=== PATIENT | female | born 1970 | race Caucasian/White ===

== ENCOUNTER 2016-10-25 09:53 | Emergency (ER) | payer MEDICARE, OTHER ==
[~2016-10-25] VITALS: Ht 165.1 cm; Wt 108.9 kg
[~2016-10-25 09:53] MED LIST: CEPHALEXIN500 MG PO; LANTUS100 UNITS/ SUB-Q; MECLIZINE HCL25 MG PO; NOVOLOG100 UNITS/ IV; PROMETHAZINE HC25 M1 PO
[2016-10-25] MEDS ORDERED: OMEPRAZOLE20 M1 PO (10:11)
--- NOTE | 2016-10-25 19:52 | EKG ---
[facility] [address] [facility] [place], [place] [address] Signed Normal sinus rhythm Normal ECG When compared with ECG of 10-APR-2016 19:01, No significant change was found Confirmed by EVAN LOPES MD ([id number]) on 10/25/2016 7:52:34 PM Electronically Signed By: EVAN LOPES MD 10/25/161951 PATIENT NAME: GAYATRI GRAHAMTIANA IVÁN Electrocardiogram DATE OF : 70 PHYSICIAN: EVAN LOPES MD REPORT #: [id number] REPORT IS CONFIDENTIAL AND NOT TO BE RELEASED WITHOUT AUTHORIZATION
== END 2016-10-25 14:29 | disposition left against medical advice (07) ==
LOC: ED 09:53
PROC: 0T9B70Z Drainage of Bladder with Drainage Device, Via Natural or Artificial Opening (ICD-10-PCS; principal; 2016-10-25)
DX: E11.65 Type 2 diabetes mellitus with hyperglycemia (principal); E11.618 Type 2 diabetes mellitus with other diabetic arthropathy; E11.621 Type 2 diabetes mellitus with foot ulcer; E11.40 Type 2 diabetes mellitus with diabetic neuropathy, unspecified; L97.529 Non-pressure chronic ulcer of other part of left foot with unspecified severity; L57.0 Actinic keratosis; R03.0 Elevated blood-pressure reading, without diagnosis of hypertension; E66.9 Obesity, unspecified; F17.210 Nicotine dependence, cigarettes, uncomplicated; Z79.4 Long term (current) use of insulin; Z89.511 Acquired absence of right leg below knee; Z89.422 Acquired absence of other left toe(s); Z89.412 Acquired absence of left great toe; Z79.899 Other long term (current) drug therapy; Z88.0 Allergy status to penicillin; Z88.1 Allergy status to other antibiotic agents; Z91.19 Patient's noncompliance with other medical treatment and regimen; Z99.3 Dependence on wheelchair
CPT/HCPCS: 36600; 51701; 73630; 80053; 81001; 82010; 82803; 83036; 85025; 85610; 93005; 93010; 96361; 96365; 96368; 96376; 99283; J0692; J7030

== ENCOUNTER 2016-11-17 16:37 | Emergency (ER) | payer MEDICARE, OTHER ==
[~2016-11-17] VITALS: Ht 165.1 cm; Wt 108.9 kg
[~2016-11-17 16:37] MED LIST changes: +OMEPRAZOLE20 M1 PO
[2016-11-17] MEDS ORDERED: CEPHALEXIN500 MG PO (20:24)
[2016-11-17] MEDS ORDERED: NORCO 5-325 TA1 EACH PO (20:24)
[2016-11-17] MEDS ORDERED: BACTRIM DS TAB1 EACH PO (20:24)
== END 2016-11-17 20:35 | disposition home or self-care (01) ==
LOC: ED 16:37
PROC: 0H96XZZ Drainage of Back Skin, External Approach (ICD-10-PCS; principal; 2016-11-17)
DX: L02.212 Cutaneous abscess of back [any part, except buttock and flank] (principal); E11.9 Type 2 diabetes mellitus without complications; Z89.422 Acquired absence of other left toe(s); F17.200 Nicotine dependence, unspecified, uncomplicated; Z88.0 Allergy status to penicillin; Z89.511 Acquired absence of right leg below knee; Z88.8 Allergy status to other drugs, medicaments and biological substances; Z79.4 Long term (current) use of insulin; Z79.899 Other long term (current) drug therapy
CPT/HCPCS: 10060; 87070; 87077; 87186; 87205; 99283

== ENCOUNTER 2016-11-20 11:50 | Emergency (ER) | payer MEDICARE, OTHER ==
[~2016-11-20] VITALS: Ht 165.1 cm; Wt 108.9 kg
[~2016-11-20 11:50] MED LIST changes: +BACTRIM DS TAB1 EACH PO; +NORCO 5-325 TA1 EACH PO
== END 2016-11-20 12:41 | disposition home or self-care (01) ==
LOC: ED 11:50
DX: Z48.817 Encounter for surgical aftercare following surgery on the skin and subcutaneous tissue (principal); E11.9 Type 2 diabetes mellitus without complications; F17.200 Nicotine dependence, unspecified, uncomplicated; Z89.422 Acquired absence of other left toe(s); Z89.511 Acquired absence of right leg below knee
CPT/HCPCS: 99282

== ENCOUNTER 2016-11-22 06:42 | Inpatient (IN) | payer MEDICARE, OTHER ==
[~2016-11-22] VITALS: Ht 165.1 cm; Wt 114.4 kg
--- NOTE | 2016-11-22 10:41 | NUR ---
PT ARRIVED TO FLOOR FROM ER VIA STRETCHER. TRANSFERED FROM STRETCHER TO BED. PT TOLERATED WELL. ORIENTED TO ROOM AND CALL LIGHT. BLOOD SUGAR CHECK. CBG 315 UPON ARRIVAL TO ROOM.
--- NOTE | 2016-11-22 10:57 | NUR ---
IN ROOM WITH PTBrenda
--- NOTE | 2016-11-22 13:05 | NUR ---
LAST BLOOD SURGAR CHECH 251. INSULIN DRIP REMAINS AT 4.2. PT KEEPS COMPLAINING OF BEING "COLD". CHECKED TEMP 98.8.
--- NOTE | 2016-11-22 14:24 | NUR ---
pt left for surgery via bed. report given to tracy izquierdo.
--- NOTE | 2016-11-22 15:53 | NUR ---
pt arrived back to floor from or via bed. alert and oriented. no complaints of pain. numbness to lower extremities. pt blood sugar checked 144.
--- NOTE | 2016-11-22 16:15 | NUR ---
PLACED DRESSING TO LEFT FOOT. NON-ADHERENT DRESSING PLACED AFTER BEING CLEANED. PT TOLERATED WELL.
--- NOTE | 2016-11-22 17:15 | NUR ---
SPOKE WITH MD REGARDING PTS CBG'S AND INSULIN DRIP. ORDER TO STOP DRIP AT THIS TIME.INSULIN DRIP STOPPED. WILL TRANSISTION TO SUB Q INSULIN.
--- NOTE | 2016-11-22 17:46 | NUR ---
PT COMPLAINING OF PAIN. ORDER GIVEN FROM TO GIVE PERCOCET 7.5/325.
--- NOTE | 2016-11-22 17:55 | NUR ---
PT COMPLAINING OF PAIN 10/29. GAVE 2 TABS PERCOCET 7.5/325 PO.
--- NOTE | 2016-11-22 18:30 | NUR ---
PT STATED, "THE PAIN IS STARTING TO GET BETTER." REQUESTING A SANDWHICH FOR DINNER.
--- NOTE | 2016-11-22 20:45 | NUR ---
ASSESSMENT DONE, PT DENIES NEEDS, WILL TAKE PAINMEDS WHEN READY.
--- NOTE | 2016-11-22 22:16 | NUR ---
PT GIVEN 2 PERCOCET FOR 6/10 LLL PAIN
--- NOTE | 2016-11-23 01:04 | NUR ---
PT CONTINUES TO SLEEP WELL, RR 26, HR 80.
--- NOTE | 2016-11-23 02:30 | NUR ---
PT FOUND WITH IV PULLED OUT, DRESSING APPLIED AND IVF SWITCHED TO SECOND IV SITE. PT C/O PAIN, 2 PERCOCETS GIVEN.
--- NOTE | 2016-11-23 04:04 | NUR ---
PT AWAKENS EASILY, DENIES PAIN, BACK TO SLEEP EASILY.
--- NOTE | 2016-11-23 04:07 | NUR ---
BLOOD SUGAR CHECKED, 196.
--- NOTE | 2016-11-23 08:28 | NUR ---
PT TEARFULL AT THIS TIME OFF AND ON. PT STATES NAUSEA HAS IMPROVED "SOME". PT WILL TO ATTEMPT TO EAT BREAKFAST. PT ALERT AND ORIENTED X4. PT C/O PRURITUS ON HER BACK, RN RUBBED BACK WITH WARM MOIST TOWEL, PT STATED "THAT HELPS".
--- NOTE | 2016-11-23 08:47 | NUR ---
PT ATE BREAKFAST THEN PROMPTLY VOMITED IT UP, APPROXIMATLY 300 ML EMISIS. PT IS TEARFUL.
--- NOTE | 2016-11-23 09:03 | NUR ---
PT RESTING QUIETLY, DOZING OFF AND ON. PT COMPLIANT WITH MEDICATIONS THIS AM.
--- NOTE | 2016-11-23 10:20 | NUR ---
FAMILY IN THE ROOM TO VISIT PT.
--- NOTE | 2016-11-23 11:04 | NUR ---
CREATIVE SERVICES SPECIALIST IN ROOM CONSULTING WITH PT. PT'S MOTHER AND AUNT ARE ALSO IN THE ROOM.
--- NOTE | 2016-11-23 12:05 | NUR ---
PT UP OUT OF BED TO COMMODE FOR SITZ BATH. ADDITIONAL ALL OVER BEDBATH GIVEN. PT PARTICIPATED, BRUSHED OWN TEETH, WASHED HER FACE AND HANDS WITH HOT SOAPY WASH CLOTH. GAUZE PULLED OUT OF WOUND ON LOWER BACK PER , WOUND WNL, SMALL AMOUNT OF SANGUNIOUS DRAINAGE NOTED. WRIGHT CATH CARE DONE, NOTED PT HAS YELLOWISH-WHITE DISCHARGE IN VAGINAL AREA, VIKKI AREA RED AND SWOLLEN.
--- NOTE | 2016-11-23 12:35 | EKG ---
[facility] [address] [facility] [place], [place] [address] Signed Normal sinus rhythm Normal ECG When compared with ECG of 25-OCT-2016 10:44, No significant change was found Confirmed by EVAN LOPES MD ([id number]) on 11/23/2016 12:35:32 PM Electronically Signed By: EVAN LOPES MD 11/23/16 1235 PATIENT NAME: GAYATRI GRAHAMTIANA IVÁN Electrocardiogram DATE OF : 70 PHYSICIAN: EVAN LOPES MD REPORT #: [id number] REPORT IS CONFIDENTIAL AND NOT TO BE RELEASED WITHOUT AUTHORIZATION
--- NOTE | 2016-11-23 14:03 | NUR ---
PT RESTING IN BED. ALERT, ORIENTED AND SUPPORTED BY HER AUNT AND MOTHER FROM [place]. PT MENTIONED THAT SHE WOULD LIKE TO VISIT WITH ME WHEN SHE DOESNOT HAVE COMPANY. I MENTIONED I WOULD STOP BY TOMORROW. SHE THANKED ME-I EXTENDED A BLESSING, WILL FOLLOW NEEDED
--- NOTE | 2016-11-23 14:07 | NUR ---
PT ALERT AND ORIENTED X4, SITTING UP IN BED VISITING WITH FAMILY. PT DENIES NAUSEA, PAIN, AND SOB AT THIS TIME.
--- NOTE | 2016-11-23 15:55 | NUR ---
PT REFUSED TO WORK WITH PHYSICAL THERAPY DUE TO PAIN, REFUSED PAIN MEDS.
--- NOTE | 2016-11-23 16:01 | NUR ---
CALLED TO UPDATE ON PT. INFORMED THAT PT REFUSED PHYSICAL THERAPY DUE TO 8/10 PAIN, PT ALSO REFUSED PAIN MEDICATION "IT MAKES ME THROW UP". ORDER GIVEN FOR PO TYLENOL 650 MG Q 4 HOURS PRN PAIN.
--- NOTE | 2016-11-23 16:09 | NUR ---
PT C/O 09/28 PAIN IN LEFT BUTTOCK. PT CALM, ALERT AND ORIENTED X4 VISITING WITH FAMILY IN THE ROOM. PT DENIES SOB AND NAUSEA. VITALS WNL. PT GIVEN 650 MG TYLENOL PO FOR PAIN, PT REFUSES TO TAKE NARCOTICS DUE TO NAUSEA. DISCUSSED PLAN OF GETTING PT UP TO THE CHAIR AFTER TYLENOL HAS HAD A CHANCE TO DECREASE PAIN. PT AGREABLE TO THIS.
--- NOTE | 2016-11-23 16:27 | NUR ---
BOTH IV SITES INTACT, NO SWELLING OR REDNESS NOTED, PT DENIES PAIN WITH FLUSH. FLUIDS INFUSING EASILY, SALINE LOCK FLUSHES EASILY.
--- NOTE | 2016-11-23 17:45 | NUR ---
ABD PAD CHANGED ON LEFT BUTTOCK, MODERATE AMOUNT OF SEROSANGUNIOUS DRAINAGE NOTED. PT ABLE TO REPOSITION EASILY IN BED. PT THEN SAT UP IN BED AND ORDERED A CHEESEBURGER FOR DINNER. PT STATES "I THINK I WILL BE READY TO WORK WITH PHYSICAL THERAPY TOMORROW, I JUST COULDN'T TODAY"
--- NOTE | 2016-11-23 18:18 | NUR ---
PT SITTING UP IN BED WATCHING TV AND EATING A CHEESEBURGER. PT DENIES NAUSEA AND SOB AT THIS TIME. PT RATES LEFT BUTTOCK PAIN 5/10, AND STATES "IT'S BETTER".
--- NOTE | 2016-11-24 00:34 | NUR ---
PT SLEEPING, ROUSES, VERBALIZES COMFORTABLE AFTER TYLENOL, SKIN CARE HS, FC CARE/NEW STAT LOCK. PT RECEIVING IVF, MERRUM, VS WNL, PAD CHANGED UNDER PATIENT FOR COMFORT, ABD PERIBUTTOCKS SMALL AMT. OF SEROSANGUINOUS/JACOB/CREAM DRAINAGE. REPOSITIONING AND ADJUSTMENT OF ABD PAINFUL TO PT. A/O, PT REPOSITIONS SELF IN BED, PREFERS R SIDE ALTHOUGH SHIFTS POSITION SLIGHTLY, SKIN CHECK WNL. FOOT ULCER DRESSINGS CDI.
--- NOTE | 2016-11-24 08:30 | NUR ---
IV SITES INTACT, NO SWELLING OR REDNESS NOTED, PT DENIES PAIN AT IV SITE, FLUIDS INFUSING EASILY. PT ALERT AND ORIENTED X 4, PT AGREEABLE AND CHEERFUL THIS MORNING. PT RATES PAIN CURRENTLY AT 4/10, PT STATES THIS IS TOLLERABLE FOR HER. PT ORDERED BREAKFAST, DENIES NAUSEA AND SOB. WOUND ON LEFT BUTTOCK ABD PAD CHANGED, MODERATE AMOUNT OF SEROSANGUINOUS DRAINAGE NOTED, ANTONELLA DRAIN VISABLE. BANDAGE ON SMALL WOUND ON LOW BACK CHANGED, SCANT SEROSANGUINOUS DRAINAGE NOTED.
--- NOTE | 2016-11-24 11:04 | NUR ---
PT BRUSHING TEETH AND WASHING FACE.
--- NOTE | 2016-11-24 11:59 | NUR ---
PT C/O SLIGHT NAUSEA AFTER EATING, SCHEDULED REGALAN GIVEN. PT ALSO GIVEN 650 MG TYLENOL PO FOR 5/10 LEFT BUTTOCK PAIN.
--- NOTE | 2016-11-24 13:11 | NUR ---
PT RESTING QUIETLY, FAMILY AT THE BEDSIDE.
--- NOTE | 2016-11-24 13:50 | NUR ---
ADRIANA SOUSA, PT DAVON CABRERA.
--- NOTE | 2016-11-24 14:30 | NUR ---
PT HAD REQUESTED YESTERDAY THAT I STOP BY TODAY-SHE HAD SOMETHING SHE WANTED TO TALK TO ME ABOUT. PT WAS ASLEEP, AND I DIDNOT WANT TO DISTURB HER. TOLD LUCAS ABREU TO LET HER KNOW I WAS BY, AND THAT THERE ARE CHAPLAINS AVAILABLE 24- THAT SHE COULD HAVE COME. GOD BLESS HER
--- NOTE | 2016-11-24 14:55 | NUR ---
PT TRANSFERED FROM BED TO BEDSIDE COMMODE INDEPENDENTLY, PT ABLE TO VOID INTO COMMODE.
--- NOTE | 2016-11-24 16:12 | NUR ---
PT REQUESTED I COME TO HER ROOM AND TALK WITH HER. TOLD THE NURSE SHE WAS AFRAID THE DR WAS GOING TO SEND HER HOME TO [place] AND SHE HAS NO ONE AT HOME TO HELP HER. SHE STATED SHE THINKS SHE WOULD LIKE TO GO TO A FACILITY--PREFERABLY [facility]. INFORMED HER AND HER MOTHER THAT [facility] WAS FULL AND MOTHER STATED "WELL YOU HAVE TO HAVE SOMEONE CHECK ON THAT AGAIN." TOLD HER I HAD TALKED WITH THEM TODAY AND YES IT IS STILL FULL. OFFERED THE NAMES OF THE SNFS IN SURROUNDING AREAS AND REHAB, [facility] AND [facility]. AGAIN STATES SHE WANTS TO GO TO [facility]. TOLD HER WE WOULD CHECK WHEN THE TIME COMES.
--- NOTE | 2016-11-24 16:33 | NUR ---
IV SITE IN LEFT UPPER ARM INTACT, NO SWELLING OR REDNESS NOTED, PT DENIES PAIN WITH FLUSH. IV SITE IN RT AC DC'D DUE TO ROUTIEN IV ROTATION. PT DAVON WELL. VITALS WNL. DRESSING ON BOTH WOUNDS CHANGED. PT GIVEN 650 MG PO TYLENOL FOR 6/10 PAIN IN LEFT BUTTOCK. PT ALERT AND ORIENTED X4. PT ABLE TO INDEPENDENTLY TRANSFER FROM BED TO BEDSIDE COMMODE WITH PROSTETIC RT LEG IN PLACE.
--- NOTE | 2016-11-24 18:00 | NUR ---
PATIENT TO [facility] FLOOR CCU, REPORT HANDOFF FROM JAYLEEN ZAVALA. PATIENT NOW RESTING ON SIDE, NO CARES AT THIST TIME, ASSESMENT DONE. FAMILY IN ROOM, PATIENT WILL NOTIFY NURSE FOR CLOSER VIEW OF SURGICAL SITES WHEN NEEDING TO TRANSFER TO BSC, FAMILY IN ROOM AT THIS TIME.
--- NOTE | 2016-11-24 19:00 | NUR ---
SHIFT REPORT RECIEVED. PATIENT SITTING UP IN SIDE OF BED. FAMILY IN ROOM. DENIES NEEDS AT THIS TIME. CALL LIGHT IN REACH.
--- NOTE | 2016-11-24 21:18 | NUR ---
EVENING MEDS GIVEN PER ORDER. ASSESSMENT COMPLETED AND DOCUMENTED. PATIENT REPORTS 5/10 PAIN IN VIKKI AREA, PRN PAIN MEDS GIVEN. PATIENT IS AAOX3. LUNG CLEARN. ABD SOFT, ROUND, AND NONTENDER. PATIENT DENIES NAUSEA AT THIS TIME. ABLE TO EAT SOME SF PUDDING AND TOLERATE ORAL FLUIDS. ABD WAS APPLIED TO VIKKI/RECTAL AREA, INCISION IS INTACT WITH MINIMAL DRAINAGE. COCCYX INCISION COVERED, C/D/I. PATIENT REFUSED NYSTATIN CREAM AT THIS TIME. AGREES TO PUT IT ON NEXT TIME SHE IS UP TO THE BSC. PATIENT REFUSED SCDS AT THIS TIME. DISCUSSED IMPORTANCE OF SCDS, PATIENT VOICED UNDERSTANDING. IV SL, SITE WNL. PATIENT RESTING IN BED. PATIENT MOTHER IN ROOM, STAYING THE NIGHT. CALL LIGHT IN REACH.
--- NOTE | 2016-11-24 23:05 | NUR ---
PATIENT RESTING IN BED. EYES CLOSED. RR 16. CALL LIGHT IN REACH.
--- NOTE | 2016-11-25 00:11 | NUR ---
PATIENT REQUIRED ASSISTANCE CLEANING AFTER USING BSC. VIKKI CARE PERFORMED. NEW ABD PLACED IN VIKKI/RECTAL AREA. SMALL AMOUNT OF YELLOW DRAINAGE. PATIENT REPORTS 5/10 PAIN AND WAS MOANING AND CRYING AFTER TRANSFERING BACK TO THE BED. PRN PAIN MEDS GIVEN. PATIENT BACK TO BED. FRESH WATER PROVIDED. NO FURTHER NEEDS AT THIS TIME. CALL LIGHT IN REACH.
--- NOTE | 2016-11-25 02:41 | NUR ---
PATIENT RESTING IN BED. EYES CLOSED. RR16. CALL LIGHT IN REACH.
--- NOTE | 2016-11-25 04:21 | NUR ---
PATIENT RESTING IN BED. EYES CLOSED. RR 18. CALL LIGHT IN REACH.
--- NOTE | 2016-11-25 04:49 | NUR ---
PATIENT RESTED WELL THROGUHOUT THE NIGHT. PAIN IN VIKKI RECTAL AREA WAS CONTROLED, PRN PAIN MEDS X3. NO NAUSEA, TOLERATED PUDDING WELL. TRANSFERS TO [facility] INDEPENDENT. VIKKI CARE/WOUND CARE W/EACH TOILETING. INSICIONS APPEAR INTACT, DRAIN IN RECTAL AREA SMALL AMOUNT OF SEROSANGUENO DRAINAGE. SITZ BATH QID. ADA DIET, GLUCOSE CHECKS.
--- NOTE | 2016-11-25 05:47 | NUR ---
PATIENT RESTED WELL THROGUHOUT THE NIGHT. PAIN IN VIKKI RECTAL AREA WAS CONTROLED, PRN PAIN MEDS X3. NO NAUSEA, TOLERATED PUDDING WELL. TRANSFERS TO [facility] INDEPENDENT. VIKKI CARE/WOUND CARE W/EACH TOILETING. INSICIONS APPEAR INTACT, DRAIN IN RECTAL AREA SMALL AMOUNT OF SEROSANGUENO DRAINAGE. SITZ BATH QID. ADA DIET, GLUCOSE CHECKS.
--- NOTE | 2016-11-25 06:36 | NUR ---
PATIENT RESTING IN BED. BREAKFAST ORDER TAKEN. PATIENT DENIES NAUSEA OR PAIN AT THIS TIME. DENIEA ANY NEEDS. CALL LIGHT IN REACH.
--- NOTE | 2016-11-25 09:00 | NUR ---
PATIENT UP AT SIDE OF BED, DR. ELLIOTT ROUNDING ON PATIENT. PAIN RATED 3/10 ON PAIN SCALE. INDEPENDANT TO BSC, STAND PIVOT. DRESSING TO LEFT HEEL IN PLACE, NO DRAINAGE. ABD TO RECTAL INSCISION SITE, DRAIN APPEARS TO WORKING WELL, WITH CLOUDY DRAINAGE ON PAD. CALLS FOR ASSIST WHEN NEEDING HELP WITH CLEANING. REFUSES SHOWER AT THIS TIME. WILL RAPPROACH. ADMINISTERED MIRALAX AND MOM PER BOWEL REGIME. VS STABLE.
[2016-11-25] MEDS ORDERED: LANTUS100 UNITS/ SUB-Q (11:16)
[2016-11-25] MEDS ORDERED: NOVOLOG100 UNIT/2 SUB-Q (11:18)
[2016-11-25] MEDS ORDERED: BLOOD LANCETS1 EACH SUB-Q (11:19)
[2016-11-25] MEDS ORDERED: INSULIN SYRING1 EA11 MISC (11:19)
[2016-11-25] MEDS ORDERED: METOCLOPRAMIDE H5 MG PO (11:35)
[2016-11-25] MEDS ORDERED: VITAMIN D250000 UNIT PO (11:44)
[2016-11-25] MEDS ORDERED: CALCIUM CARBON500 MG PO (11:45)
--- NOTE | 2016-11-25 13:40 | OR ---
[facility] [address] [place], [place] [address] Signed DATE OF PROCEDURE: 11/22/16 PREOPERATIVE DIAGNOSES Morbid obesity, peripheral vasculopathy, diabetes out of control. Left perirectal abscess (complex). POSTOPERATIVE DIAGNOSES Morbid obesity, peripheral vasculopathy, diabetes out of control. Left perirectal abscess (complex). Mid lumbar abscess of soft tissue (furuncle of lumbar area). PROCEDURE PERFORMED Exam under anesthesia. Incision and drainage of complex left perirectal abscess. Placement of seton drain. Incision and drainage of lumbar abscess of skin. SURGEON: Abdirahman Elliott MD. ANESTHESIA: Saddle block with sedation (Azra Sandoval CRNA). INDICATION This 46-year-old, morbidly obese, white woman was seen in the emergency room and evaluated by Dr. Garibay earlier in the day and found to have a significant left perirectal abscess. Approximately 9-10 days ago, she had a right-sided abscess, which was drained in the emergency room by Dr. Lucas Kern and treated also by Dr. Ceja. She has very severe diabetes and has been unable to eat lately and not taking her insulin on that basis. Her blood sugar at presentation was over 500 today. Her white count was elevated, though her bicarb was normal and lactic acid was normal. She has been fluid resuscitated in the intensive care unit setting with the assistance of Dr. Morrow anticipating drainage of the left perirectal abscess. She understands the risks of bleeding, infection, formation of fistula (10% chance) as well as need for other indicated procedures and wished to proceed. FINDINGS The saddle block anesthetic was quite optimal in providing anesthesia. In addition to the perirectal abscess on the left, she did have a mid-lumbar abscess well away from the insertion site of the needle for her saddle block. This was drained separately. As regard to the left perirectal abscess, it was a complex multi trabeculated area about the size of a tennis ball. A counter incision was made and a yellow vessel loop placed for additional drainage. Examination of the anal canal shows no sign of neoplasm or Electronically Signed By: ABDIRAHMAN ELLIOTT MD 11/25/16 1340 PATIENT NAME: DELANO GRAHAM OPERATIVE REPORT DATE OF : 70 PHYSICIAN: ABDIRAHMAN ELLIOTT MD REPORT #: [id number] REPORT IS CONFIDENTIAL AND NOT TO BE RELEASED WITHOUT AUTHORIZATION [facility] [address] [place], [place] [address] Signed obvious inflammatory bowel disease. The dentate line was examined fully. There was no formed fistula at this time. PROCEDURE IN DETAIL The patient was brought to the operating room, after undergoing saddle block anesthetic and placed in prone hailey-knife position, the buttocks were taped apart. Preoperative antibiotic, meropenem was used. The patient has a below-knee amputation on 1 side and a transmetatarsal amputation on the other. On the plantar aspect of the forefoot, was an open granulated wound, approximately 6 c m in size, but no abscess proper. The perineum was prepared with a Chlorhexidine solution and draped sterilely. Manipulation of the area in question showed fluctuance. The right side was entirely normal. There was no evidence of horseshoe abscess. Using an 11 blade in the anterior plane, an incision was made not far from the anal verge (on the possibility of fistula formation should occur) and egress of purulent material was noted. There was Gram stain and cultured. A tonsil clamp was used to break up loculations in the complex perirectal abscess for more egress of purulence. Lateral to this, these loculations were similarly broken up. A counter incision was made laterally for placement of the tonsil clamp in this area for further breakdown of loculations. A yellow vessel loop was used to be tied in a loop in a seton configuration allowing for irrigation of the abscess cavity. Complete decompression was noted. It was then noted in the lumbar area that a soft tissue mass with a small punctum with egress of purulence was noted. This was more fully prepared and draped and a transverse incision made there allowing for egress of purulent material and separate Gram stain and cultures. This was essentially an infected furuncle or carbuncle. This site was packed with plain gauze. A peripad was applied to the perineum as were stretched shorts. She was ultimately returned to the supine position and taken to recovery room in good condition. Blood loss was relatively minimal. Purulence output was maximal, certainly 100 mL at minimum. MD MARY Lloyd/Muna /[id number] Electronically Signed By: ABDIRAHMAN ELLIOTT MD 11/25/16 1340 PATIENT NAME: DELANO GRAHAM OPERATIVE REPORT DATE OF : 70 PHYSICIAN: ABDIRAHMAN ELLIOTT MD REPORT #: [id number] REPORT IS CONFIDENTIAL AND NOT TO BE RELEASED WITHOUT AUTHORIZATION [place] [address] [facility] [place] [address] Signed cc: MD Sunita Frank MD Electronically Signed By: ABDIRAHMAN ELLIOTT MD 11/25/16 1340 PATIENT NAME: DELANO GRAHAM OPERATIVE REPORT DATE OF : 70 PHYSICIAN: ABDIRAHMAN ELLIOTT MD REPORT #: [id number] REPORT IS CONFIDENTIAL AND NOT TO BE RELEASED WITHOUT AUTHORIZATION
--- NOTE | 2016-11-25 13:40 | HP ---
[facility] [address] [place], [place] [address] Signed DATE OF ADMISSION: 11/22/16 REASON FOR ADMISSION Diabetes out of control with associated left perirectal abscess. 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 She presents today with pain in the left perirectal area and found by Dr. Garibay to have obvious perirectal abscess. Of note, she was seen in the emergency room by Dr. Ceja on November 17, 2016 with a perirectal abscess, which was drained in the emergency room. This was on the right side. Great relief to her pain was noted with drainage and culture did show Staph aureus. Pansensitive. She was treated with Bactrim antibiotic and has been taking it as an outpatient. She has not been taking her Insulin or other diabetic medications due to poor oral intake though she has managed to take her antibiotic. Evaluation by Dr. Garibay in the emergency room showed a white count of 16.8, hematocrit of 28, platelets of 325 bicarb of 21, elevated creatinine to 2.88 and a serum glucose of 520. The troponin level was elevated at 0.032 though she has no clinical chest pain. An EKG shows no sign of ischemic change s. She is admitted for further evaluation and care related to perirectal abscess and multiple medical problems. Past medical history does include severe peripheral vascular disease as described including lower extremity amputations as previously described. She does have ulceration on the plantar aspect of her foot where prior transmet amputation was undertaken and a plain x-ray shows findings consistent with plantar abscess but no evidence of foreign body, soft tissue gas or osteomyelitis. SOCIAL HISTORY She has moved here from [place], [place]. She has 4 children, all of them in elementary school or lower ages. She is living with her boyfriend. She was consider "disabled." REVIEW OF SYSTEMS Denies any chest pain or shortness of breath. Has pain predominantly in the left perirectal area. Denies forefoot pain. Denies trouble breathing. PHYSICAL EXAMINATION Electronically Signed By: ABDIRAHMAN ELLIOTT MD 11/25/16 1340 PATIENT NAME: DELANO GRAHAM HISTORY AND PHYSICAL DATE OF : 70 PHYSICIAN: ABDIRAHMAN ELLIOTT MD REPORT #: [id number] REPORT IS CONFIDENTIAL AND NOT TO BE RELEASED WITHOUT AUTHORIZATION [facility] [address] [place], [place] [address] Signed GENERAL: Very obese white woman, who is alert and oriented. NECK: Trachea is midline. CHEST: Shows normal respiratory excursion without tachypnea. HEART: Regular. ABDOMEN: Massively obese. Perirectal areas examined and there IS some erythema of the skin in the right perianal space but no fluctuance or tenderness. The left side has obvious perirectal abscess without necessitation at this time. There is no crepitus. LABORATORY DATA Shows white count 16.1, hematocrit 28, platelets 325, lactic acid 0.9, albumin 2.5, alkaline phosphatase 599. Electrolytes abnormal for sodium of 121, potassium is 4.1, chloride 91, bicarb 21, BUN 37, creatinine 2.88. Estimated GFR 18 mL/minute and platelet count of 520,000. ASSESSMENT The patient has numerous medical problems and acute exacerbation of them likely related to left perirectal abscess. A previous right perirectal abscess was drained in the emergency room setting within the past few days and appears to have resolved. She has been taking Keflex and Bactrim as an outpatient. The abscess on the left side clearly needs drainage. I doubt this represents a horseshoe abscess but it is a possibility. I have confirmed with Iraj Morrow the Hospitalist and the patient will be admitted to the Intensive Care Unit for further medical optimization ultimately anticipating incision and drainage of the left perirectal abscess. I do not believe she will be fully optimized until sepsis source clearance is confirmed with drainage of the abscess. She may require several days of hospitalization for her sugar control and so on. The perirectal abscess appears to be reasonably straightforward but it has likely caused some of her decompensation of her renal and other metabolic functions. Discussed with her as well as Dr. Garibay. In the meantime we will initiate meropenem antibiotic. MD MARY Lloyd/Modl /[id number] Electronically Signed By: ABDIRAHMAN ELLIOTT MD 11/25/16 1340 PATIENT NAME: DELANO GRAHAM HISTORY AND PHYSICAL DATE OF : 70 PHYSICIAN: ABDIRAHMAN ELLIOTT MD REPORT #: [id number] REPORT IS CONFIDENTIAL AND NOT TO BE RELEASED WITHOUT AUTHORIZATION [address] [address] Signed cc: MD Sunita Frank MD Electronically Signed By: ABDIRAHMAN ELLIOTT MD 11/25/16 1340 PATIENT NAME: GAYATRI GRAHAMTIANA IVÁN HISTORY AND PHYSICAL DATE OF : 70 PHYSICIAN: ABDIRAHMAN ELLIOTT MD REPORT #: [id number] REPORT IS CONFIDENTIAL AND NOT TO BE RELEASED WITHOUT AUTHORIZATION
--- NOTE | 2016-11-25 14:30 | NUR ---
PATIENT COMPLAINS OF CRAMPING IN LOWER STOMACH. STATES " I FEEL LIKE HAVING A BOWEL MOVEMENT BUT EVERYTIME I SIT ON BSC NOTHING COMES OUT". PATIENT ATTEMPTED SIDS BATH WITH SPRAY BOTTLE, CONTINUES TO REFUSE SHOWER. CONTINUE TO PROVIDE VIKKI RECTAL CARE. CBG STABLE, PATIENT HAS GOOD APPETITE. URINATING WELL.
--- NOTE | 2016-11-25 18:29 | NUR ---
PROVIDED PATIENT WITH SITZ BATH SET UP TO TAKE HOME, HOWEVER PATIENT REFUSED INSTRUCITON THIS EVENING, STATES " I FEEL LOWSY RIGHT NOW, AND JUST WANT TO POOP, PLEASE WAIT TILL LATER". CALLED DR. SILVA IN REGARDS NOT BEING ABLE TO HAVE BOWEL MOVEMENT, ADDED MORE BOWEL CARE TO BOWEL REGIME. PATIENT ATE 100% OF DINNER. BLOOD SUGAR STABLE, NO INSULIN ADMINISTERED AT DINNER. CONTINUES TO BE INDEPENDANT TO BSC. PROVIDED MESH UNDERWEAR TO HELP KEEP ABD IN PLACE. PAIN WELL CONTROLLED THROUGHOUT DAY WITH PO PAIN MEDICATION. PLAN TO DISCHARGE HOME TOMORROW.
--- NOTE | 2016-11-25 19:00 | NUR ---
SHIFT ASSESSMENT COMPLETED. PATIENT RESTING IN BED. STATES THAT SHE IS VERY TIRED AT THIS TIME. CALL LIGHT IN REACH.
--- NOTE | 2016-11-25 21:05 | NUR ---
PATIENT ASSESSMENT COMPLETED AND DOCUMENTED. EVENING MEDS GIVEN. PATIENT LUNGS ARE CLEAR, DIMINISHED IN BASES. ABD IS ROUND, NONTENDER, AND BOWEL SOUNDS ACTIVE. PATIENT RATES PAIN AT 3/10 RIGHT NOW IN THE VIKKI/RECTAL AREA. INCISIONS ARE INTACT. COCCYZ SITE IS COVERED, NO NEW DRAINAGE. RECTAL SITE IS DRAINING SMALL AMOUNT OF SEROSANGUENOUS DRAINAGE. ABD APPLIED TO AREA. GAUZE ON LEFT FOOT IS C/D/I. PATIENT APPEARS TO BE DISTRESSED OVER HER MOTHER LEAVING TODAY. LUCAS WASSERMAN TALKED WITH HER AND SHE APPEARS IN BETTER SPIRITS. PATIENT DAUGHTER ARRIVED TO ROOM TO STAY WITH PATIENT. NO FURTHER NEEDS AT THIS TIME. CALL LIGHT IN REACH.
--- NOTE | 2016-11-26 00:05 | NUR ---
SITZ BATH DONE. VIKKI CARE AND WOUND CARE PERFORMED. MODERATE AMOUNT OF SEROSANGUENOUS DRAINAGE WAS NOTED IN VIKKI RECTAL AREA. PATIENT TOLERATED TREATMENT WELL. STATED PAIN WAS WELL CONTROLLED. PATIENT UP TO BSC. BACK TO BED AND NEW LINENS PROVIDED. PATIENT RESTING. CALL LIGHT IN REACH.
--- NOTE | 2016-11-26 03:07 | NUR ---
PATIENT RESTING IN BED. DENIES PAIN. STATES SHE IS COMFORTABLE RIGHT NOW. CALL LIGHT IN REACH.
--- NOTE | 2016-11-26 04:40 | NUR ---
PATIENT RESTED WELL THROUGHOUT SHIFT. PRN PAIN MEDS X2. NO BM DURING NIGHT. ABD IS NONTENDER, BOWEL SOUNDS ACTIVE. URINE OUTPUT QS. MODERATE AMOUNT OF DRAINAGE FROM RECTAL AREA DRAIN. ABD APPLIED TO SITE. INCISION AT COCCYX NO NEW DRAINAGE. SITZ BATH PERFORMED WITH PM CARE. LEFT FOOT COVERED IN GAUZE, C/D/I. TOLERATING ADA DIET. NO REPORTS OF NAUSEA.
--- NOTE | 2016-11-26 06:47 | NUR ---
MORNING MEDS GIVEN PER ORDER. PATINET RESTING IN BED. DENIES PAIN AT THIS TIME. NO NEEDS. CALL LIGHT IN REACH.
--- NOTE | 2016-11-26 10:30 | NUR ---
PATIENT RESTING BACK IN BED, APPEARS TO HAVE FLAT AFFECT. STATES " I AM FEELING SCARED AND ANXIOUS TO GO HOME" VERY TEARY EYED. VOICES CONCERNS WITH BEING ABLE TO TAKE CARE OF SELF AT HOME. PATIENT REFUSING SHOWER TODAY, DISCUSSED IMPORTANCE. STATES " I JUST DON'T FEEL LIKE IT RIGHT NOW" WILL REAPPROACH LATER THIS MORNING. AT BEDSIDE NOW, DISCUSSING FINANCES, CONVERSATION APEPARS CALM AND APPROPRIATE. PATIENT'S MOM CALLED THIS MORNING, PATIENT STATED " I WILL CALL AND UPDATE HER, PLEASE DON'T CALL HER BACK".
--- NOTE | 2016-11-26 10:44 | NUR ---
PATIENT NOW SHOWERING. APPEARS TO BE MOVING WELL.
--- NOTE | 2016-11-26 11:00 | NUR ---
LATE ENTRY: DISCUSSED WITH DR. LOPES PATIENT'S CONCERNS WITH BEING DISCHARGED HOME AND REQUEST TO BE PLACED AT A SNF. DR. LOPES STATED " PATIENT IS CLEARED BY PHYSICAL THERAPY AND IS AT BASELINE, THERE IS NO NEED FOR HER TO GO TO SNF." DISCUSSED FURTHER PATIENT NOT HAVING HELP AT HOME, OR BEING ABLE TO MANAGE CARE HERSELF. AND CONCERNS OF TAKING CARE OF SMALL CHILDREN IN THE HOUSE. DR. LOPES STATED " STATED THAT SHE HAS OPTIONS FOR MORE SUPPORT, BUT CHOOSES TO STAY IN HER CURRENT HOME SITUATION WITH HER SIGNIFICANT OTHER AND HIS CHILDREN." DISCUSSED THIS WITH PATIENT, WHO VERBALIZED UNDERSTANDING. STATES " I LOVE MY BOYFRIEND, AND KIDS I JUST NEED A BRAKE TO GET BETTER". PATIENT REPORTED BEING ABLE TO CARE FOR SELF, PROVIDED PATIENT WITH ABD AND MESH UNDERWEAR TO ASSIST WITH CHANGING PAD AND KEEPING IN PLACE. PATIENT STATED " I WILL BE ABLE TO TAKE CARE OF THIS MYSELF". PATIENT UP TO [facility], ASKED PATIENT IF SHE WOULD BE ABLE TO PERFORM SITZ BATHS ON SELF. PATIENT STATED " IT WOULD BE HARD TO GET DOWN INTO TUB, I COULD USE THE SECOND BATHROOM IN THE HOUSE" PROVIDED PATIENT WITH SITZ BATH SETUP FROM OB, PUT TOGETHER FOR PATIENT AND SHOWED HOW TO USE WITH WATER AND TUBE SYSTEM" PATIENT STATED " THERE ARE 9 PEOPLE IN THE HOUSE SO I WOULD HAVE A HARD TIME KEEPING THAT IN A PLACE WHERE THE KIDS WOULDN'T TOUCH IT" PATIENT DEMONSTRATED USING PLASTIC BOTTLE TO PERFOMR A MODIFIED SITZ BATH TO SELF. PATIENT STATED " I WILL FIGURE OUT A WAY TO SOAK IN THE TUB". PATIENT DEMONSTRATED ABILITY TO CARE FOR WOUND AND DRAIN TO COCCYX.
[2016-11-26] MEDS ORDERED: NICORETTE4 M2 BUCCAL (11:25)
[2016-11-26] MEDS ORDERED: OXYCODON-ACETA1 EAC2 PO (11:26)
[2016-11-26] MEDS ORDERED: MAPAP325 MG PO (11:26)
[2016-11-26] MEDS ORDERED: ONE TOUCH ULTR1 EACH VI (11:27)
[2016-11-26] MEDS ORDERED: ONE TOUCH ULTR1 EACH XX (11:27)
[2016-11-26] MEDS ORDERED: SENNA LAX8.6 MG PO (11:28)
[2016-11-26] MEDS ORDERED: MILK OF MA400 MG/5 M PO (11:28)
[2016-11-26] MEDS ORDERED: MIRALAX17 GM PO (11:28)
[2016-11-26] MEDS ORDERED: VITAMIN D250000 UNIT PO (11:29)
[2016-11-26] MEDS ORDERED: NYSTATIN15 GM TOP (11:29)
[2016-11-26] MEDS ORDERED: BACTRIM DS TAB1 EACH PO (11:43)
--- NOTE | 2016-11-28 10:00 | NUR ---
CALLED BY JUAN RAMON [facility] FOR [facility]. SHE STATES SHE WAS CALLED BY PATIENT AT THE OFFICE AND PATIENT WAS CRYING. SHE STATES PATIENT VOICED CONCERN THAT SHE IS FEELING WORSE AND CANNOT DO WHAT SHE WAS SUPPOSED TO DO AT HOME FOR HER DISCHARGE. SHE STATED TO CHW THAT SHE CANNOT GET UP THE STAIRS AT HER HOUSE DUE TO WEAKNESS AND PAIN IN ORDER TO USE THE BATHROOM FOR THE SITZ BATH OR SHOWER FOR HER WOUND. SHE ALSO STATED TO CHW SHE IS HAVING TROUBLE GIVING INSULIN TO HERSELF. PATIENT ASKED CHW IF SHE COULD GO TO A FDC. SHE STATED TO HER THAT SHE IS AFRAID SHE WILL HAVE TO COME BACK TO THE HOSPITAL IF SHE DOESN'T GET HELP. PATIENT HAS NO PCP. I LOCATED DR SIMONS WHO IS HOSPITALIST AT THIS TIME. SHE STATED SHE DID NOT SEE PATIENT BEFORE DISCHARGE SUNDAY. SHE ALSO STATED THAT DR ELLIOTT WAS THE PRIMARY AND DISCHARGING PHYSICIAN ON THIS PATIENT. I CALLED DR ELLIOTT'S OFFICE. THEY STATE HE IS IN SURGERY TODAY. CALLED OR DEPARTMENT. DR ELLIOTT IS CURRENTLY IN OR SUITE. MESSAGE LEFT FOR HIM TO CALL CASE MANAGEMENT WHEN HE IS FREE. CALLED [facility]. THEY STATE THEY HAVE A BED AVAILABLE TOMORROW IF ORDERS ARE SENT AND APPROVED. CLINICALS SENT FROM ADMISSION.
--- NOTE | 2016-11-28 14:00 | NUR ---
CALLED PATIENT AT HOME. PATIENT STARTED CRYING SOON I STARTED ASKING HOW SHE IS DOING. SHE STATED SHE DOES THINK SHE NEEDS TO GO TO "A HALF-WAY". PATIENT STATED SHE HAS NOT BEEN ABLE TO GET UP TO HER BATHROOM FOR OVER 3 MONTHS DUE TO LEG PAIN AND WEAKNESS. SHE STATES SHE USES A "CAMPING POTTY" DOWNSTAIRS. HAS NO SHOWER DOWNSTAIRS. SHE STATES SHE WAS ABLE TO GET UP TO THE BATHROOM ONCE YESTERDAY WITH HELP OF THREE PEOPLE BUT SHE WAS SO WORE OUT SHE COULDN'T STAY IN THE SHOWER. SHE STATED SHE HAS NO ENERGY TO TRY AGAIN. SHE STATED SHE CAN'T REACH THE PAD ON HER LOWER BACK TO CHANGE IT. SHE STATED SHE IS ALONE WITH CHILDREN OVER 14 HOURS A DAY. HER DAUGHTER WHO WAS HERE YESTERDAY TO VISIT FROM OUT OF TOWN IS GONE NOW. SHE STATED SHE CHECKED HER BLOOD SUGAR ONCE TODAY AND IT WAS 232. SHE STATED SHE IS HAVING TROUBLE READING THE SYRINGE AND "I'M AFRAID I'M NOT GIVING MYSELF THE RIGHT INSULIN". SHE ALSO STATED SHE FEELS "SO CRAPPY" SHE FORGETS TO TAKE HER MEDICATIONS. WE DISCUSSED THAT I'M TRYING TO GET ORDERS AND ADMITTANCE TO SNF FOR HER AND THAT I WILL CALL HER BACK WHEN I HEAR MORE.
--- NOTE | 2016-11-28 14:45 | NUR ---
SPOKE WITH DR ELLIOTT IN-BETWEEN SURGERIES. HE STATES IF SHE STILL NEEDS TO GO TO SNF TOMORROW HE WILL HELP WITH ORDERS. HE ALSO STATED HE WILL NOT COVER HER PCP PAST THAT POINT OF ADMITTANCE TO SNF. CALLED PATIENT TO UPDATE HER. SHE IS IN AGREEMENT THAT I WILL CALL HER IN THE MORNING REGARDING ADMIT TO SNF AND THAT SHE WILL NEED TO FIND A RIDE TO THE FACILITY. SHE STATES SHE IS GRATEFUL FOR THE HELP. I ALSO ENCOURANGED HER THAT SHE TAKE HER MEDICATIONS TONIGHT. AND REMINDED HER THAT IF SHE FEELS WORSE SHE CAN ALWAYS COME TO THE WALK-IN CLINIC OR EMERGENCY ROOM IF NEEDED.
--- NOTE | 2016-11-29 10:00 | NUR ---
ORDERS FOR SNF ADMIT DONE BY DR ELLIOTT. ORDERS FAXED TO [facility]. CONFIRMATION RECEIVED. CALLED PATIENT. UPDATED HER THAT ORDERS ARE SENT AND SHE WILL BE GETTING A CALL FROM NICHOLAS IN ADMITTING AT [facility]. PATIENT TEARFUL, THANKS ME SEVERAL TIMES. STATES SHE CALLED HER DAUGHTER WHO IS COMING FROM [place] TO GIVE HER A RIDE TO SNF.
--- NOTE | 2016-11-29 11:43 | NUR ---
NICHOLAS FROM [facility] CAME TO MY OFFICE AND TOOK ORIGINALS OF ORDERS/PASSR/RX FOR PATIENT ADMITTANCE. SHE STATES PATIENT IS ALREADY AT THE FACILITY. SHE STATES SHE WILL DISCUSS WITH DR PEREYRA WHO IS PROVIDER FOR FACILITY IF HE WOULD BE ABLE TO TAKE PATIENT PCP AT DISCHARGE OF FACILITY.
--- NOTE | 2016-11-30 11:45 | NUR ---
SPOKE WITH JUAN RAMON [facility] AT [facility]. SHE HAS BEEN WORKING WITH PATIENT TO HELP FIND PCP. UPDATED HER ON PATIENTS ADMITTANCE TO WBT AND POSSIBLE PCP OF DR PEREYRA.
--- NOTE | 2016-12-22 08:27 | DS ---
[facility] [address], [place] [address] Signed DATE OF DISCHARGE: 11/26/16 REASON FOR ADMISSION Left perirectal abscess and diabetes out of control with multiple medical problems. HISTORY OF PRESENT ILLNESS This 46-year-old very obese white woman has severe peripheral vascular disease having undergone left below-knee amputation and right transmetatarsal amputation in the past. She continues to smoke. She presented to the emergency room with pain in the left perirectal area and found to have by Dr. Rui Garibay to have obvious perirectal abscess. Notably, she was seen in the emergency room on November 17, 2016, with a right perirectal abscess, which was drained in the emergency room. The pathogen was found to be Staph aureus, not MRSA and was pansensitive. She was treated with Bactrim antibiotic and has been taking it as an outpatient. The patient has not been feeling well and has not been taking her insulin. Her blood glucose was found to be over 500. Her creatinine is chronically elevated and on day of the evaluation was elevated at 2.88, bicarb of 29, white count of 16.8, and hematocrit of 28. Troponin level was elevated at 0.032, though she had no clinical evidence of chest pain. EKG showed no ischemic change. She is admitted for further evaluation and care. SOCIAL HISTORY She has moved here from [place], [place]. She has 4 children. All of them in elementary school or younger. She is living with her boyfriend. She is consider "disabled." PHYSICAL EXAMINATION GENERAL: A very obese white woman, who is alert and oriented. NECK: Trachea is midline. CHEST: Clear. HEART: Regular without murmur. ABDOMEN: Massively obese. RECTAL: A perirectal abscess is noted on the left side with erythema and tenderness. The right perianal area has erythema, but no fluctuance or tenderness. HOSPITAL COURSE She was admitted to the Intensive Care Unit, given her extreme hyperglycemia, blood glucose greater than 500, though not with diabetic ketoacidosis proper. Consultation was undertaken with Dr. Morrow, the Hospitalist and the insulin infusion was initiated. She was then taken to the operating room, where she underwent exam under anesthesia. The Electronically Signed By: ABDIRAHMAN ELLIOTT MD 12/22/16 0827 PATIENT NAME: DELANO GRAHAM DISCHARGE SUMMARY DATE OF : 70 PHYSICIAN: ABDIRAHMAN ELLIOTT MD REPORT #: [id number] REPORT IS CONFIDENTIAL AND NOT TO BE RELEASED WITHOUT AUTHORIZATION [facility] [address], [place] [address] Signed anesthetic was a saddle block with sedation. Incision and drainage of the left complex perirectal abscess were accomplished. Placement of a seton-type drain was undertaken. She incidentally had a lumbar abscess of the skin, which was drained and gauzed, was packed into the area. Postoperatively, she remained somewhat hyperglycemic, but with appropriate treatment, this came into control. She has had marked improvement of her symptoms as regard to pain and so forth. Hematocrit was noted to drift as low as 22.2. Over time, this anemia was attributed to her chronic renal failure. Her triglycerides were elevated at 330, cholesterol at [address] Morrow, her Datastage Architect. Her creatinine was noted to be 2.62. She had progressive improvement with blood sugar control into the 90s. She did not feel that well with it, as she was used to have high blood sugar, no doubt. Her elevated creatinine was incrementally improved. She was visited by her mother from [place], [place] and better characterization of her many chronic medical conditions undertaken. Her cultures and Gram stain ultimately showed Staph aureus, which was pansensitive. She was changed from Meropenem antibiotic to Bactrim orally administered, which she tolerated well. She is considered to have acute tubular necrosis related to systemic hypoperfusion from the infection, though she is well known to have chronic renal insufficiency to begin with. She was managed with perianal hygiene to include shower with a wand in lieu of a sitz bath as her body habitus and amputation status of her lower extremities, precluded safe soaking in bathtub. It was learned that the open wound of her left transmetatarsal amputation site has been ongoing for many years. Her original amputation for peripheral vascular disease was by Dr. De Oliveira in [place], [place], in [facility] a number of years ago. Her below-knee amputation was similarly related to vascular insufficiency. A long discussion was maintained as to the essential need for her to stop smoking that she will have progressive cardiovascular problems, early demise, and possibly progression of peripheral arterial insufficiency requiring additional amputation in time. She is disinclined to follow this advice unfortunately. At the time of discharge, she is transferring independently. She is using a shower for perianal hygiene. The seton yellow vessel loop drain remains in place, which will be removed as an outpatient in 2-3 weeks. She will be obtaining a primary care physician in the area as she has moved from the [facility] and is lacking a primary care physician currently. She understands that I am not an expert in diabetes management, other primary care functions and the essential nature of her aligning herself with a provider of her choosing. Dr. Morrow was assisting with this as well. Electronically Signed By: ABDIRAHMAN ELLIOTT MD 12/22/16 0827 PATIENT NAME: DELANO GRAHAM DISCHARGE SUMMARY DATE OF : 70 PHYSICIAN: ABDIRAHMAN ELLIOTT MD REPORT #: [id number] REPORT IS CONFIDENTIAL AND NOT TO BE RELEASED WITHOUT AUTHORIZATION [facility] [address], [place] [address] Signed DISCHARGE MEDICATIONS Oxycodone 7.5/325 one p.o. q.4 hours p.r.n. pain #14, no refill. Vitamin D2 50,000 unit capsule every week for 5 weeks. Calcium carbonate tablet 500 mg p.o. b.i.d. Insulin (Lantus) 40 units subcu at bedtime, also sliding/scale insulin NovoLog 2 to 10 units subcu q.i.d. with a blood sugar sliding scale schedule provided for her. Reglan 5-mg tablets 1 p.o. q.i.d. p.r.n. stomach emptying problems (said to have gastroparesis). Nicorette 4-mg lozenge q. hour as needed for cigarette craving as smoking cessation opportunity. Milk of magnesia 5 mL p.o. daily for constipation. MiraLAX 17-g powder pack b.i.d. for constipation. Senna 8.6-mg tablets 2 tabs p.o. b.i.d. as needed for constipation. Nystatin cream 15 g apply topically to perineal area as needed. Bactrim DS 1 tab p.o. daily x10 days' total. DISCHARGE DIAGNOSES Severe left perirectal abscess related to Staphylococcus aureus, which is pansensitive (consistent with right perirectal abscess, previously drained). Morbid obesity. Insulin-dependent diabetes mellitus. Tobacco abuse. Peripheral vascular disease related to nicotine abuse, status post left below knee amputation and right transmetatarsal amputation with chronic wound of foot (currently dressed with Juan wrap and gauze). Probable gastroparesis. Constipation, problem. MD MARY Lloyd/Jackyl /[id number] cc: Yina Groves MD Electronically Signed By: ABDIRAHMAN ELLIOTT MD 12/22/16 0827 PATIENT NAME: DELANO GRAHAM DISCHARGE SUMMARY DATE OF : 70 PHYSICIAN: ABDIRAHMAN ELLIOTT MD REPORT #: [id number] REPORT IS CONFIDENTIAL AND NOT TO BE RELEASED WITHOUT AUTHORIZATION [facility] [address] [place] [address] [place] [address] Signed MD Rui Paulino MD Electronically Signed By: ABDIRAHMAN ELLIOTT MD 12/22/16 0827 PATIENT NAME: DELANO GRAHAM DISCHARGE SUMMARY DATE OF : 70 PHYSICIAN: ABDIRAHMAN ELLIOTT MD REPORT #: [id number] REPORT IS CONFIDENTIAL AND NOT TO BE RELEASED WITHOUT AUTHORIZATION
== END 2016-11-26 13:00 | disposition home or self-care (01) | DRG 637 ==
LOC: ED 06:42 → CCU 09:21 → MS 18:30 → CCU 18:35 → MS 11-24 18:14
PROVIDERS: ADMIT Surgery
PROC: 0H98X0Z Drainage of Buttock Skin with Drainage Device, External Approach (ICD-10-PCS; principal; 2016-11-22 15:00)
DX: E11.65 Type 2 diabetes mellitus with hyperglycemia (principal); N17.0 Acute kidney failure with tubular necrosis; K61.1 Rectal abscess; E87.1 Hypo-osmolality and hyponatremia; E87.2 Acidosis; Z68.41 Body mass index [BMI] 40.0-44.9, adult; Z79.4 Long term (current) use of insulin; I12.9 Hypertensive chronic kidney disease with stage 1 through stage 4 chronic kidney disease, or unspecified chronic kidney disease; E11.22 Type 2 diabetes mellitus with diabetic chronic kidney disease; N18.3 Chronic kidney disease, stage 3 (moderate); D64.9 Anemia, unspecified; R79.89 Other specified abnormal findings of blood chemistry; E11.621 Type 2 diabetes mellitus with foot ulcer; E11.43 Type 2 diabetes mellitus with diabetic autonomic (poly)neuropathy; K31.84 Gastroparesis; K21.9 Gastro-esophageal reflux disease without esophagitis; F17.210 Nicotine dependence, cigarettes, uncomplicated; E66.01 Morbid (severe) obesity due to excess calories; E55.9 Vitamin D deficiency, unspecified; Z89.422 Acquired absence of other left toe(s); Z89.511 Acquired absence of right leg below knee
CPT/HCPCS: 00902; 36415; 62322; 71010; 73630; 80053; 80069; 81001; 82247; 82306; 82465; 82570; 82607; 82728; 82746; 83540; 83605; 83615; 84075; 84080; 84100; 84300; 84466; 84478; 84484; 84540; 84550; 84703; 85025; 85045; 85610; 85730; 86850; 86900; 86901; 87070; 87075; 87077; 87186; 87205; 93005; 93010; 97110; 97163; 97530; 99406; J1644; J2185; J2250; J2405; J2765; J3010; J7030; J7120; Q0177

== ENCOUNTER 2018-04-06 04:15 | Emergency (ER) | payer MEDICARE, OTHER ==
[~2018-04-06] VITALS: Ht 165.1 cm; Wt 114.4 kg
[~2018-04-06 04:15] MED LIST changes: +BLOOD LANCETS1 EACH SUB-Q; +CALCIUM CARBON500 MG PO; +INSULIN SYRING1 EA11 MISC; +MAPAP325 MG PO; +METOCLOPRAMIDE H5 MG PO; +MILK OF MA400 MG/5 M PO; +MIRALAX17 GM PO; +NICORETTE4 M2 BUCCAL; +NOVOLOG100 UNIT/2 SUB-Q; +NYSTATIN15 GM TOP; +ONE TOUCH ULTR1 EACH VI; +ONE TOUCH ULTR1 EACH XX; +OXYCODON-ACETA1 EAC2 PO; +SENNA LAX8.6 MG PO; +VITAMIN D250000 UNIT PO
--- OUTSIDE RECORDS SUMMARY | 2018-04-06 04:18 | XMS ---
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 Details: AMA - REFUSED ADMITTANCE FOR TREATMENT CRITERIA MET - Group Notification - [facility] CARE PROVIDERS NIC BARRON Internal Medicine Current PHONE: Unknown ABDIRAHMAN WARREN [facility] Current PHONE: [phone] KEYLA SCHMIDT Primary Care 12/28/2016-Current PHONE: [phone] NIKOLE RAMÍREZ Primary Care Current PHONE: Unknown [facility] Mental Health Provider 05/06/2014-Current for Living PHONE: [phone] Danuta has no Care Guidelines for this patient. Elizabeth VISIT COUNT ([address] [facility] TOTAL 3 NOTE: Visits indicate total known visits. ED/UCC VISIT TRACKING (12 MO.) 04/06/2018 04:15 [facility] [place] TYPE: Emergency COMPLAINT: - STROKE SYMPTOMS 04/18/2017 14:21 [facility] OR [facility]. TYPE: Emergency DIAGNOSES: - Nausea with vomiting, unspecified - Vomiting (Severe) - Abdominal Pain - vomiting 04/11/2017 13:17 [facility]. TYPE: Emergency DIAGNOSES: - Abdominal Pain - Biliary acute pancreatitis without necrosis or infection - abd pain and vomiting - Vomiting (Severe) INPATIENT VISIT TRACKING (12 MO.) [facility] DIAGNOSES: - Nausea with vomiting, unspecified [facility]2017 [facility] DIAGNOSES: - Biliary acute pancreatitis without necrosis or infection [id number]
--- NOTE | 2018-04-07 16:49 | EKG ---
[facility] [address] [facility] [place], [place] [address] Signed Normal sinus rhythm Septal infarct , age undetermined Abnormal ECG When compared with ECG of 22-NOV-2016 07:45, Septal infarct is now present Confirmed by REILLY WU DO ([id number]) on 04/07/2018 4:48:57 PM Electronically Signed By: REILLY WU DO 04/07/18 1649 PATIENT NAME: REBECCA GRAHAMJATINDER MINOR Electrocardiogram DATE OF : 70 PHYSICIAN: REILLY WU DO REPORT #: [id number] REPORT IS CONFIDENTIAL AND NOT TO BE RELEASED WITHOUT AUTHORIZATION
== END 2018-04-06 09:00 | disposition short-term general hospital (02) ==
LOC: ED 04:15
DX: I63.9 Cerebral infarction, unspecified (principal); E11.9 Type 2 diabetes mellitus without complications; I10 Essential (primary) hypertension; F17.200 Nicotine dependence, unspecified, uncomplicated; Z88.0 Allergy status to penicillin; Z88.8 Allergy status to other drugs, medicaments and biological substances; Z79.899 Other long term (current) drug therapy; Z79.4 Long term (current) use of insulin
CPT/HCPCS: 70450; 70496; 70498; 71045; 80053; 85025; 85610; 85730; 93005; 93010; 99285-25; J2405; Q9967